=== PATIENT | female | born 1945 | race Caucasian/White ===

== ENCOUNTER 2023-11-25 06:46 | Day surgery (SDC) | payer MEDICARE, OTHER, SELFPAY ==
--- NOTE | 2023-11-16 10:31 | EKG12_ITS ---
Test Reason : PRE OP Blood Pressure : / mmHG Vent. Rate : 050 BPM Atrial Rate : 050 BPM P-R Int : 000 ms QRS Dur : 074 ms QT Int : 446 ms P-R-T Axes : 000 011 009 degrees QTc Int : 406 ms Sinus rhythm Abnormal ECG Confirmed by GARETH SUAZO, KITTY ([id number]), industrial editor HOANG FREEMAN ([id number]) on 11/18/2023 6:22:32 AM Referred By: Pauline Gudino Confirmed By:CABRERA SERVIN MD
[2023-11-16 11:18] LABS: Hematocrit 38.6 % (37-47); Hemoglobin 12.5 g/dL (12.0-15.0); Mean Corp Hgb Conc 32.4 g/dL (32-36); Mean Corpuscular Volume 92.6 fL (81-99); Mean Platelet Vol. 9.3 fl (6.2-12.0); Platelet Count 346 K/mm3 (150-450); RBC Distribution Width SD 47.8 fl (35.1-43.9); Red Blood Count 4.17 M/mm3 (4.2-5.4); White Blood Count 6.8 K/mm3 (4.4-11.0)
[2023-11-16 11:38] LABS: Anion Gap 4 (5-15); BUN 16 mg/dL (7-18); BUN/Creat Ratio 15.8 RATIO (10-20); Calcium,Total 9.2 mg/dL (8.5-10.1); Chloride 110 mmol/L (98-107); Creatinine, Serum 1.01 mg/dL (0.55-1.02); EST Glomerular Filtration Rate 56 mL/min (>60); Est Glom Filt Rate - Afr Amer 68 mL/min (>60); Glucose 110 mg/dL (74-106); Potassium 4.3 mmol/L (3.5-5.1); Sodium Level 138 mmol/L (136-145)
--- NOTE | 2023-11-16 13:18 | HP.PCM.OB_ITS ---
History and Physical Date of Admission: 11/25/23 Expand All Collapse All Pre-Op History and Physical HPI: The patient is a 78 year old female presenting for discussion regarding right sided adnexal mass and endometrial fluid. All tumor markers are negative but now showing some solid projections- recommendation for removal. pre-operative visit. She is scheduled for Laparoscopic BSO and Pelvic washings, Hysteroscopy, D&C, for Right ovarian mass, endometrial fluid on 11/25/23 - tumor markers negative and [facility] gave clearance to perform surgery. Procedure discussed along with risks, benefits and complications. Other alternatives discussed for management. Consent form signed? Yes. PAST MEDICAL HISTORY PAST MEDICAL HISTORY Diagnosis Date ? Conductive hearing loss Wears bilateral hearing aids ? Essential hypertension ? Mixed hyperlipidemia ? Osteoporosis ? Thyroid disease PAST SURGICAL HISTORY PAST SURGICAL HISTORY Procedure Laterality Date ? TONSILLECTOMY & ADENOIDECTOMY <AGE 11 1969 CURRENT MEDICATIONS Current Outpatient Medications Medication Sig Dispense Refill ? denosumab (PROLIA) 60 mg/mL Inject 60 mg subcutaneously one time only. ? aspirin, enteric coated (ASPIRIN, ENTERIC COATED) 81 mg EC tablet Take 81 mg by mouth once daily. ? amLODIPine (NORVASC) 10 mg tablet Take 10 mg by mouth once daily. ? atenolol (TENORMIN) 50 mg tablet 50 mg every morning. ? lisinopril (ZESTRIL, PRINIVIL) 40 mg tablet Take 40 mg by mouth once daily. ? pravastatin (PRAVACHOL) 10 mg tablet Take 10 mg by mouth once daily. ? omeprazole (PRILOSEC) 20 mg capsule 20 mg as needed. ? levothyroxine (SYNTHROID) 75 mcg tablet Take 75 mcg by mouth once daily. No current facility-administered medications for this visit. ALLERGIES: Nickel PERSONAL HISTORY: SOCIAL HISTORY Social History Tobacco Use ? Smoking status: Never ? Smokeless tobacco: Never Vaping Use ? Vaping Use: Never used Substance Use Topics ? Alcohol use: Not Currently ? Drug use: Never FAMILY HISTORY: FAMILY HISTORY FAMILY HISTORY Problem Relation Age of Onset ? Breast Cancer Mother ? Liver Cancer Mother ? Pancreatic Cancer Mother ? Heart Father ? Stroke Father ? Hypertension Brother ? Narcolepsy Paternal Grandfather REVIEW OF SYMPTOMS: negative except as noted above PHYSICAL EXAMINATION: VITALS: There were no vitals taken for this visit. GENERAL: The patient is well nourished, well hydrated in no acute distress. , The patient is oriented to time, place, and person. NECK: full range of motion LUNGS: Clear to auscultation bilaterally. no wheezes, rhonchi or rales HEART: Regular rate and rhythm, Normal heart sounds, and No murmurs or gallops GENITALIA: deferred WET PREP: Not indicated IMPRESSION: 78yo with right adnexal complex mass and endometrial fluid noted on ultrasound PLAN: Laparoscopic BSO with removal of right adnexal mass, Pelvic washings, and Hysteroscopy, D&C Pt has been counseled on risks/benefits and alternatives of surgery including but not limited to anesthesia, bleeding, infection, injury to pelvic structures including bowel, bladder, ureters and vessels. Pt wishes to proceed with surgery at this time. I discussed with patient that if mass is borderline or malignant may need further treatment or surgery. Pt also understands if mass ruptures in abdomen it changes stage of cancer. Discussed that case was reviewed with [facility] and they were comfortable with surgery being performed in [place]. Pt agrees to proceed with surgery at this time. Pre and post op instructions reviewed. I have reviewed and updated past medical and surgical history, medications and allergies Pauline Hernadez MD Office Visit on 11/16/2023 Note shared with patient
[2023-11-25] VITALS (11 sets, daily range): BP systolic 135–155; BP diastolic 65–91; PULSE 54–62; RESP 16; TEMP 36.1–36.5; O2SAT 93–97; BMI 30.4
--- NOTE | 2023-11-25 | OV_PTH ---
PATIENT: VICENTE ARTEAGA LOC: [facility] [place] U#:[id number] AGE/SX: 78/F ROOM: RE11/25/[address]: Dr. Pauline Gudino, MDDOB: 1945 BED: DIS: 11/25/2023 SPEC #: [id number] RECD: 11/25/23 07:47 STATUS: RAY ROLON #: [id number] DONAVAN: 11/25/23 00:[address]: Pauline Gudino DEPT: SURGICAL PATHOLOGY RECD BY: Brock Smart Tissues: A - Endometrium, NOS B - Left ovary C - Right ovary Procedures: Surgery Specimen Level IV HEADER OPERATION: Laparoscopic, Salping-oopherectomy, pelvic washings PRE-OP DIAGNOSIS: Right adrenal complex mass, endometrial fluid TISSUE SUBMITTED: A- Endometrial curetting, B- Left fallopian tube and ovary, C- Right fallopian tube and ovary MICROSCOPIC DIAGNOSIS A. Endometrial curettings: Strips of benign endometrial epithelium, consistent with atrophy endometrium. Fragments of benign ectocervical and endocervical epithelium and mucous. B. Left fallopian tube and ovary, salping-oopherectomy: Fallopian tube- no pathologic diagnosis. Ovary- no pathologic diagnosis. C. Right fallopian tube and ovary: salping-oopherectomy: Fallopian tube- no pathologic diagnosis. Ovary- Simple serous cyst adenoma. CALEB/ 11/26/2023 MICROSCOPIC DESCRIPTION Slides are reviewed. GROSS DESCRIPTION A. Received in fixative is one container labeled with the patient's name and designated Endometrial curettings. The specimen consists of multiple irregular fragments of vargas mucoid tissue that in aggregate measure 2.0 x 1.0 x 0.1 cm. The specimen is totally submitted in one cassette. B. Received in fixative is one container labeled with the patient's name and designated Left fallopian tube and ovary. The specimen consists of left fallopian tube and ovary. Fallopian tube measures 5.0cm in length and 0.5cm in diameter. Fimbrial end is identified. Sections reveal unremarkable cut surfaces. The ovary measures 2.5 x 1.0 x 1.0cm and weighs 3.7gm. No tubal adhesions are identified. Sections reveal unremarkable cut surfaces. [employer] sections are submitted in two cassettes. 1- fallopian tube, 2- ovary C. Received in fixative is one container labeled with the patient's name and designated Right fallopian tube and ovary mass. The specimen consists of right fallopian tube and ovary mass. The fallopian tube measures 7.0cm in length and 0.5cm in diameter. Also present in the container is a cystic ovary measuring 3.5 x 3.0 x 1.5cm and weighs 8.09 gm. Fimbrial end of the fallopian tube appears to be adherent to the surface of the ovary. The serosal surface is smooth and inked black. Sections reveal the entire ovary is replaced by a cyst filled with le turbid mucoid fluid. No obvious papillations are identified. The cyst wall measures up to 0.1 to 0.2cm in thickness. [employer] sections are submitted in four cassettes as follows: 1- fallopian tube, 2-4 ovary. Carmelo 11/25/2023 TC:1 CPT: 39952k1,47393
[2023-11-25] MEDS: Lactated Ringers 1,000 ML 15 ML IV (07:21)
--- NOTE | 2023-11-25 07:59 | PCM.DC ---
Discharge Instructions Diet Discharge Diet: No restrictions Activity May resume sexual activity in: 2 weeks Lifting Restrictions: 20-25 lbs Dressing / Incision Call your doctor if your incision/area has: Continuous Slow Oozing, Sudden Increased Bleeding, Increased Pain/ Swelling, Increased Redness, Foul Smelling Discharge and Swelling at the incision site Call your doctor if you observe: Fever of 101 or Higher, Inability to urinate, Inability to have a bowel movement, Using more than 1 pad per hour and Uncontrolled pain Additional Dressing/Incision Instructions:: You have skin glue over your incision sites, do not pick off. You may shower and let the soap and water run over the incision sites and dab dry. Follow Up Care Please Follow Up With: Pauline Gudino MD When: 1-2 weeks post OP if you need an appointment please call [phone] Test Results: Test results from this visit will be discussed in further detail at your follow-up appointment, if applicable. Discharge Plan Admission Attending Provider: Pauline Gudino Primary Care Provider: CLEMENTINA GRIMALDO Instructions Print Language: Georgian Discharge Orders/Prescriptions Prescriptions: No Action magnesium oxide 400 mg magnesium capsule 400 mg PO DAILY PRN PRN (Reason: constipation) aspirin [Adult Low Dose Aspirin] 81 mg tablet,delayed release (DR/EC) 81 mg PO QHS cholecalciferol (vitamin D3) [Vitamin D3] 125 mcg (5,000 unit) tablet 125 mcg PO DAILY docusate sodium [Colace] 100 mg capsule 200 mg PO QHS calcium citrate 200 mg (950 mg) tablet 500 mg PO QHS ascorbic acid (vitamin C) [Vitamin C] 500 mg capsule, extended release 500 mg PO QHS Prolia 60 mg/mL syringe 60 mg subcut .Q6MO pravastatin 10 mg tablet 10 mg PO QHS omeprazole 20 mg capsule,delayed release(DR/EC) 20 mg PO QHS lisinopril 40 mg tablet 40 mg PO DAILY atenolol 50 mg tablet 50 mg PO DAILY levothyroxine 75 mcg tablet 75 mcg PO DAILY amlodipine 10 mg tablet 10 mg PO QHS Emergen-C 1,000 mg powder effervescent in packet 1 ea PO DAILY polyethylene glycol 3350 [Miralax] 17 gram/dose powder 17 g PO DAILY PRN PRN (Reason: constipation) Referrals / Follow Up: CLEMENTINA GRIMALDO [Other] Disposition Disposition (needs filled in before D/C Order can be placed): Home, Self Care
--- NOTE | 2023-11-25 08:30 | FLU_PTH ---
PATIENT: VICENTE ARTEAGA LOC: [facility] U#:[id number] AGE/SX: 78/F ROOM: RE11/25/[address]: Dr. Pauline Gudino, MDDOB: 1945 BED: DIS: 11/25/2023 SPEC #: [id number] RECD: 11/25/23 13:13 STATUS: RAY ОЛЬГА #: [id number] DONAVAN: 11/25/23 08:[address]: Pauline Gudino DEPT: CYTOLOGY RECD BY: Brock Smart Tissues: Pelvis, NOS Procedures: Special Stain Group II Surgery Specimen Level IV Cytospin Fluid HEADER OPERATION: Laparoscopic, salpingo-oopherectomy, pelvic washings PRE-OP DIAGNOSIS: Right adnexal complex mass, endometrial fluid TISSUE SUBMITTED: Pelvic washings DIAGNOSIS CYTOLOGY Pelvic washings fluid (cytospin and cellblock): Negative for malignant cells. SJ/mr 11/26/2023 CYTOLOGY STUDY Slides are reviewed. CYTOLOGY GROSS Received is 50 ml of light vargas-cloudy fluid labeled with the patient's name and and designated per the requisition as Pelvic washings. Submitted for cytology preparation including cell block. Mr 11/25/2023 TC:5 CPT: 78432,42211
[2023-11-25] MEDS: Bupivacaine Mpf 0.5% 30 ML VIAL (09:21)
[2023-11-25] MEDS: Sugammadex Sodium 200 MG/2 ML VIAL IV (09:24)
--- NOTE | 2023-11-25 09:24 | OP.PCM_ITS ---
Report of Operation Date of Procedure: 11/25/23 Pre-Operative Diagnosis: thickened endometrium, endometrial fluid, Right ovarian complex cyst Post-Operative Diagnosis: same Surgery/Procedure Performed:: Laparoscopic BSO with removal right ovarian cyst, Pelvic washings, Hysteroscopy, D&C Description of Surgical Findings:: Right ovarian cyst remained intact and was removed with endocatch bag. Left ovary and tube appeared normal. Surgeon: Pauline Gudino civil engineer in training: Stephanie Mccauley Type of Anesthesia: General and Local Special Medications: 0.5% marcaine Specimen's removed: bilateral fallopian tubes, bilateral ovaries, right ovarian cyst, endometrial curettings, Pelvic washings Drains: none Estimated Blood Loss (mL): 5cc Fluids Replaced: 1000 Description of Procedure: Patient was prepped and draped in a normal sterile fashion under MAC anesthesia. bladder drained prior to procedure 150cc urine. A weighted speculum was placed in the vagina and the anterior lip of the cervix was grasped with a single-tooth tenaculum. uterus sounded to 6cm Cervix was progressively dilated to allow passage of a 5 mm hysteroscope. The lining was fully visualized and noted to appear atrophic . Curettage was performed and scant tissue expelled , sent to pathology. uterine manipulator placed. tenaculum removed. Legs then placed in parallel with the abdomen the tenaculum and the weighted speculum were removed. 2 towel clamps were placed superior to umbilicus. After Marcaine was injected superior to umbilicus a small incision was made and a 5 mm trocar was placed under direct visualization. CO2 gas was used to insufflate the intra-abdominal cavity. Upon inspection right ovarian cyst noted- otherwise unremarkable. At this time then the LLQ port was placed again Marcaine was in jected small incision was made a knife and the 5 mm trocar was placed. this was repeated on right side. At this time then tubes were traced back to the fimbriated ends. Ligasure was used to coagulate and ligate along IP ligament, uterovarian and the mesosalpinx bilaterally until ovaries and tubes removed completely. Good hemostasis was appreciated. The umbilical incision was extended to 10mm port and endocatch bag placed- specimens collected and removed. The cyst remained intact until removal in the bag, there was no spillage of cyst contents outside of the bag. 0-vicryl was then used to closed fascia of umbilical incision. At this time procedure was deemed complete successful. The gas was desufflated on from the intra-abdominal cavity. The trochars were removed. Skin was closed using 4-0 Monocryl in a subcutaneous fashion. Dermabond glue was placed. Instrument lap and needle counts were correct ?2. The uterine manipulator was removed. Vaginal sweep was performed it was negative. There were no complications anticipated normal postoperative course for this patient. Dr. Mccauley assisted in manipulation of tissue and retraction and holding of camera. Grafts/Implants Used: none Procedure Start Time: 08:56 Procedure Stop Time: 09:26 Complications none Admit VTE Documentation VTE Present on Admission: Yes VTE Mechan Device Prophylaxis: SCD's VTE Pharm Prophylaxis ordered?: No Reason prophylaxis not ordered:: Procedure Not Indicated
[2023-11-25] MEDS: Phenazopyridine 95 MG Tablet PO (12:05)
[2023-11-25] MEDS: Acetaminophen 500 MG Tablet PO (12:05)
== END 2023-11-25 12:52 | disposition home or self-care (01) ==
LOC: SDC 06:46 → AC 06:47
PROVIDERS: Anesthesiology; Referring Provider Obstetrics & Gynecology; Visit Provider Obstetrics & Gynecology
PROC: (CPT 58661; principal; 2023-11-25 08:15)
PROC: 0UDB8ZZ Extraction of Endometrium, Via Natural or Artificial Opening Endoscopic (ICD-10-PCS; CPT 58558; 2023-11-25 08:15)
DX: D27.0 Benign neoplasm of right ovary (principal); E78.2 Mixed hyperlipidemia; E07.9 Disorder of thyroid, unspecified; I10 Essential (primary) hypertension; K21.9 Gastro-esophageal reflux disease without esophagitis; Z79.82 Long term (current) use of aspirin; Z79.899 Other long term (current) drug therapy; Z79.890 Hormone replacement therapy
CPT/HCPCS: 58661; 58558; 00840; 36415; 80048; 84443; 85027; 88108; 88305; 88313; 93005; J7120; J2405